=== PATIENT | female | born 1965 | race Caucasian/White ===

== ENCOUNTER 2020-07-15 10:30 | Outpatient (RCR) | payer MEDICARE, MEDICAID, SELFPAY ==
--- NOTE | 2020-07-09 13:42 | PM.EVENT ---
Event Note Date of Service: 07/09/20 Event Note: No show to med appointment.
[2020-07-09 14:16] VITALS: BMI 24.2
--- NOTE | 2020-07-09 15:13 | PC.NURSE ---
clients case opened in treatment team. The client called and ledt a message that she could not finf the find the email
--- NOTE | 2020-07-09 15:15 | PC.NURSE ---
The client left a message that when it was time to talk with the prescriber she could not find the E mail and therefore did not see her. I forward the call to Racheal Pelletier and called the client. She explained she just didnt have the e mail. She states that she had a good first day and will be back tomorrow.
--- NOTE | 2020-07-10 10:01 | PC.ADMIT ---
Patient is a 54 year old female who was referred by [facility] inpatient unit where patient was hospitalized s/p overdose on Ibuprofen and ETOH. Patient BAL 194, toxicology screen positive for cocaine. Patient reported VH of demons in her bedroom. She was reportedly not taking her medications consistently secondary to substance us. 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 In addition patient has hx of multiple suicide attempts via overdose. Patient receives VNA services for medication management. She also has a [facility] cyanide case hardener. Patient presents with depressed anxious mood. Denied SI. Asked her how she felt about the SA at present and she stated that she is glad it didn't work, stated she has a dog and friends who love her and that she loves also. Stated she is in the program to help her, get back on her feet . Report history of substance use. Reports ETOH use drinking 2 drinks a day, stated last drink was on Monday. Denied symptoms of detox and denied hx of ETOH detox sxs. Also reports history of IV cocaine last use 4-5 months ago and recent use of crack cocaine last use Monday night. Reports using crack cocaine about 2 x a month. Strongly encourged patient to attend online substance use groups in addition to PHP groups for more support. Medication reconciled with patient and [facility] D/C medication list. Patient reports taking as prescribed and stated that the VNA is scheduled to visit today as patient is to receive her monthly dose of IM Aripiprazole Lauroxil ER.
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
--- NOTE | 2020-07-13 08:54 | PC.NURSE ---
Staff stated that patient called out today as she was not feeling well stating she had a stomach virus. I called patient and she c/o diarrhea and nausea. Encouraged patient to increase her fluid intake. Patient did start the new prescription medication Cogentin. Ruth Zaman NP is aware.
--- NOTE | 2020-07-13 12:40 | PC.NURSE ---
Spoke to patient's VNA Teresa from [facility]. Informed Teresa that the [facility] prescriber Farzana Guzman NP wants to d/c patients IM Abilify monthly injections and started cogentin BID d/t Akathisia symptoms. Patient stated she started the Cogentin last Monday. Teresa has been with the patient for the past 2 years. Reports hx of pacing for about one year and that patient's prescriber is aware. Stated Abilify was increased starting December of 2019. Will d/c Abilify.
--- NOTE | 2020-07-14 13:24 | HO.PHPPROGNO ---
Subjective Subjective Date of Service: 07/14/20 Reason For Visit: depression Interim History: Ms. Matthew reports starting cogentin 1mg po BID. She reports minimal improvement of pacing and sense of restlessness. She denies seeing demons. She denies VH/AH. She reports last cocaine use was about one week ago. She continues to report very little insight into her substance use. She reports cocaine makes me feel normal. She denies SI/HI. Medication Compliance: Yes Side effects from medications: Yes (akathisia- most likely abillify but pt also on seroquel,cocaine) Mental Status Exam Mental Status Exam Narrative: Appearance: casually groomed, tapping feet, somewhat restless. Behavior: cooperative Psychomotor: some restlessness noted Speech: clear, normal rate/rhythm/volume, spontaneous TP: linear TC: no signs of psychosis, feeling restless/anxious SI: none HI: none VH/AH: denies Insight/judgment: poor x 2. Memory/cog: alert, oriented x 3. Grossly intact to conversational testing. Diagnostics Vital Signs (24Hr): Body Mass Index 24.2 Assessment & Plan Assessment & Plan (1) Cocaine-induced psychotic disorder: Status: Acute Code(s): F14.959 - Cocaine use, unspecified with cocaine-induced psychotic disorder, unspecified Assessment and Plan: Pt currently experiencing akathisia secondary to ABILIFY, also on seroquel- PT just received BARNARD of abilify on 07/09/2020. 1. D/C abilify due to akathisia- however, just had BARNARD. Cnsider paliperidone once next dose is due. 2. Pt continues to experience s/s of Akathisia- continue cogentin; Start propanolol 10mg po BID, educated pt on risks of CVA with cocaine use. 3. coordinate with OP psychiatric prescriber to switch to another antipsychotic. (2) PTSD (post-traumatic stress disorder): Status: Acute Code(s): F43.10 - Post-traumatic stress disorder, unspecified Assessment and Plan: 1. continue prozac 80mg po daily 2. continue seroquel 3. continue prazosin for nightmares. Certification I certify that partial hospital treatment is medically necessary due to the symptoms and problems resulting from the patient's mental illness and the failure to treat the patient at the partial hospital level of care would likely result in the patient requiring inpatient psychiatric care which could not be prevented at a less intensive level of care. Greater than 50% of the session was spent on counseling and/or coordination of care Discharge Plan Discharge Attending provider: James Zavala Medications: New benztropine 1 mg tablet 1 mg PO BID 15 Days Qty: 30 RF: 0 propranolol 10 mg tablet 10 mg PO BID Qty: 20 RF: 0 No Action fluoxetine 40 mg Capsule 80 mg PO DAILY RF: 0 hydroxyzine HCl 50 mg Tablet 50 mg PO BID PRN (Reason: Anxiety) RF: 0 omeprazole 40 mg Capsule,Delayed Release(Dr/Ec) 40 mg PO DAILY RF: 0 quetiapine 100 mg Tablet 100 mg PO BID PRN (Reason: Insomnia) RF: 0 calcium carbonate 500 mg calcium (1,250 mg) Tablet,Chewable 500 mg PO Q4H PRN (Reason: Heartburn) RF: 0 albuterol sulfate 90 mcg/actuation Hfa Aerosol Inhaler 2 puff INHALATION Q4H PRN (Reason: Shortness Of Breath) RF: 0 prazosin 2 mg Capsule 6 mg PO BEDTIME RF: 0 quetiapine 50 mg Tablet 150 mg PO BEDTIME RF: 0 Anoro Ellipta 62.5-25 mcg/actuation Blister With Device 1 inh INHALATION DAILY RF: 0 aripiprazole lauroxil 441 mg/1.6 mL Suspension,Extended Rel Syring 661 mg IM QMONTH RF: 0 Telehealth Telehealth Location of provider rendering services: practice address Location of patient: address on file Patient Identification confirmed using: Name, : Yes Telehealth method: video Patient verbally consented to treatment: Yes Patient verbally consented to billing insurance company: Yes Patient informed of any privacy concerns related to visit: Yes Time spent with patient (mins): 30
--- NOTE | 2020-07-14 14:45 | PC.NURSE ---
I met with client to review her treatment plan and to discuss discharge plans. She reports she has providers. We discussed 12 step groups online and she said she would try one. We agreed that her discharge day will be 07/29 or
--- NOTE | 2020-07-15 14:05 | PC.NURSE ---
The client called and left a message that she would not be returning today because she is too anxious. I called after program to check in. I left a message to call me
--- NOTE | 2020-07-15 15:21 | PC.NURSE ---
I called [facility] to make an appointment for the client with Aundrea Lopez. Left message to call
== END 2020-07-15 23:55 | disposition left against medical advice (07) ==
LOC: HO.PHPA 10:30
PROVIDERS: Visit Provider Psychiatry & Neurology Psychiatry
DX: F33.1 Major depressive disorder, recurrent, moderate (principal); F43.10 Post-traumatic stress disorder, unspecified; F14.959 Cocaine use, unspecified with cocaine-induced psychotic disorder, unspecified; Z79.899 Other long term (current) drug therapy
CPT/HCPCS: 90791; 90853

== ENCOUNTER 2021-05-13 13:19 | Outpatient (RCR) | payer MEDICARE, MEDICAID, SELFPAY | END 2021-05-14 07:29 | disposition home or self-care (01) | LOC: HO.PHPA 13:19 | PROVIDERS: PCP Physician Assistant; Visit Provider Psychiatry & Neurology Psychiatry | DX: F25.9 Schizoaffective disorder, unspecified (principal); F43.10 Post-traumatic stress disorder, unspecified; F14.90 Cocaine use, unspecified, uncomplicated ==

== ENCOUNTER 2021-07-23 20:11 | Inpatient (IN) | payer MEDICARE, MEDICAID, SELFPAY ==
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
[2021-07-24 08:28] VITALS: BP 136/92; PULSE 101; RESP 17; TEMP 36.6; O2SAT 97
[2021-07-24] MEDS: Thiamine HCL 100 MG TABLET 50 MG PO (08:52)
[2021-07-24] MEDS: Escitalopram Oxalate 5 MG TABLET 15 MG PO (08:53)
[2021-07-24] MEDS: Benztropine Mesylate 1 MG TABLET PO ×2 (08:54→20:02)
[2021-07-24] MEDS: Propranolol HCL 10 MG TABLET PO (08:55)
[2021-07-24] MEDS: Omeprazole 40 MG CAPSULE.DR PO (08:55)
[2021-07-24] MEDS: Folic Acid 1 MG TABLET PO (08:55)
[2021-07-24 09:46] LABS: Estimated Average Glucose 114 mg/dL; Hemoglobin A1c % 5.6 %
[2021-07-24 09:52] LABS: Cholesterol 302 mg/dL; HDL Cholesterol 63 mg/dL; LDL Cholesterol Calculated 195 mg/dl; Magnesium 2.1 mg/dL (1.6-2.6); Triglycerides 222 mg/dL
[2021-07-24] MEDS: LORazepam 0.5 MG TABLET PO ×2 (09:55→16:06)
[2021-07-24 10:16] LABS: Free T4 (Free Thyroxine) 0.98 ng/dL (0.71-1.85); Thyroid Stimulating Hormone 1.42 uIU/mL (0.32-4.0)
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
[2021-07-24] MEDS: Nicotine 21 MG PATCH.TD24 TRANSDERMA (14:07)
[2021-07-24] MEDS: Nicotine Polacrilex 2 MG GUM 4 MG BUCCAL ×2 (14:56→17:36)
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
[2021-07-24 19:58] VITALS: BP 127/84; PULSE 81; RESP 16; TEMP 36.7; O2SAT 97
[2021-07-24] MEDS: Prazosin HCL 5 MG, Prazosin HCL 1 MG 6 MG PO (20:00)
[2021-07-24] MEDS: traZODone HCL 100 MG TABLET PO (20:01)
[2021-07-24] MEDS: Melatonin 3 MG TABLET 6 MG PO (20:01)
[2021-07-24] MEDS: Propranolol HCL 20 MG TABLET PO (20:02)
[2021-07-25] MEDS: LORazepam 0.5 MG TABLET PO ×3 (02:54→17:19)
[2021-07-25 09:38] VITALS: BP 134/79; PULSE 81; RESP 18; TEMP 35.8; O2SAT 96
[2021-07-25] MEDS: Nicotine 21 MG PATCH.TD24 TRANSDERMA (09:42)
[2021-07-25] MEDS: Escitalopram Oxalate 5 MG TABLET 15 MG PO (09:44)
[2021-07-25] MEDS: Folic Acid 1 MG TABLET PO (09:45)
[2021-07-25] MEDS: Propranolol HCL 10 MG TABLET PO (09:45)
[2021-07-25] MEDS: Benztropine Mesylate 1 MG TABLET PO ×2 (09:45→20:09)
[2021-07-25] MEDS: Thiamine HCL 100 MG TABLET 50 MG PO (09:47)
[2021-07-25] MEDS: Omeprazole 40 MG CAPSULE.DR PO (09:47)
[2021-07-25] MEDS: Nicotine Polacrilex 2 MG GUM 4 MG BUCCAL ×2 (09:52→17:19)
[2021-07-25] MEDS: Calcium Carbonate 750 MG TAB.CHEW PO (10:56)
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
[2021-07-25 18:00] VITALS: BP 108/67; PULSE 87; RESP 18; TEMP 36.2; O2SAT 97
[2021-07-25] MEDS: Prazosin HCL 1 MG CAPSULE 8 MG PO (20:08)
[2021-07-25] MEDS: Propranolol HCL 20 MG TABLET PO (20:09)
[2021-07-25] MEDS: Melatonin 3 MG TABLET 6 MG PO (20:09)
[2021-07-25] MEDS: traZODone HCL 100 MG TABLET PO (20:09)
[2021-07-26 08:25] VITALS: BP 139/70; PULSE 95; RESP 17; TEMP 36.6; O2SAT 95
[2021-07-26] MEDS: Albuterol Sulfate 90 MCG 8 GM INHALER 2 PUFF INHALE (08:39)
[2021-07-26] MEDS: Nicotine 21 MG PATCH.TD24 TRANSDERMA (08:41)
[2021-07-26] MEDS: Thiamine HCL 100 MG TABLET 50 MG PO (08:42)
[2021-07-26] MEDS: Omeprazole 40 MG CAPSULE.DR PO (08:42)
[2021-07-26] MEDS: Propranolol HCL 10 MG TABLET PO (08:43)
[2021-07-26] MEDS: Escitalopram Oxalate 5 MG TABLET 15 MG PO (08:43)
[2021-07-26] MEDS: Benztropine Mesylate 1 MG TABLET PO ×2 (08:43→21:09)
[2021-07-26] MEDS: Folic Acid 1 MG TABLET PO (08:43)
[2021-07-26] MEDS: LORazepam 0.5 MG TABLET PO ×3 (08:44→21:09)
[2021-07-26] MEDS: Nicotine Polacrilex 2 MG GUM 4 MG BUCCAL ×3 (08:48→18:12)
[2021-07-26 09:24] LABS: Folate 14.8 ng/mL (> or = 4.0); Vitamin B12 372 pg/mL (200-900)
[2021-07-26] MEDS: Calcium Carbonate 750 MG TAB.CHEW PO (10:39)
[2021-07-26] MEDS: hydrOXYzine HCL 25 MG TABLET PO (16:19)
[2021-07-26 18:00] VITALS: BP 107/71; PULSE 80; RESP 18; TEMP 36.7; O2SAT 95
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
[2021-07-26] MEDS: traZODone HCL 100 MG TABLET PO (21:09)
[2021-07-26] MEDS: Melatonin 3 MG TABLET 6 MG PO (21:09)
[2021-07-26] MEDS: Prazosin HCL 5 MG CAPSULE 10 MG PO (21:09)
[2021-07-26] MEDS: Propranolol HCL 20 MG TABLET PO (21:10)
[2021-07-27] MEDS: Omeprazole 40 MG CAPSULE.DR PO (06:48)
[2021-07-27] MEDS: LORazepam 0.5 MG TABLET PO ×2 (06:49→16:34)
[2021-07-27] MEDS: Calcium Carbonate 750 MG TAB.CHEW PO ×3 (06:55→17:53)
[2021-07-27] MEDS: Albuterol Sulfate 90 MCG 8 GM INHALER 2 PUFF INHALE (07:55)
[2021-07-27 08:00] VITALS: BP 130/69; PULSE 82; RESP 16; TEMP 36.6; O2SAT 95
[2021-07-27] MEDS: Nicotine Polacrilex 2 MG GUM 4 MG BUCCAL (08:01)
[2021-07-27] MEDS: Nicotine 21 MG PATCH.TD24 TRANSDERMA (08:37)
[2021-07-27] MEDS: Escitalopram Oxalate 5 MG TABLET 15 MG PO (08:38)
[2021-07-27] MEDS: Benztropine Mesylate 1 MG TABLET PO ×2 (08:39→20:57)
[2021-07-27] MEDS: Folic Acid 1 MG TABLET PO (08:39)
[2021-07-27] MEDS: Thiamine HCL 100 MG TABLET 50 MG PO (08:39)
[2021-07-27] MEDS: Propranolol HCL 10 MG TABLET PO (08:40)
[2021-07-27] MEDS: Ondansetron ODT 4 MG TAB.RAPDIS TRANSLINGU (09:14)
[2021-07-27] MEDS: Magnesium Hydrox/Alum Hydrox 30 ML ORAL.SUSP PO ×3 (09:30→20:27)
--- NOTE | 2021-07-27 13:33 | ECG_ITS ---
Test Reason : lt sided chest discomfort Blood Pressure : / mmHG Vent. Rate : 066 BPM Atrial Rate : 066 BPM P-R Int : 166 ms QRS Dur : 078 ms QT Int : 406 ms P-R-T Axes : 044 030 065 degrees QTc Int : 425 ms Sinus rhythm with marked sinus arrhythmia Normal EKG No previous ECGs available Referred By: Josias Naqvi Electronically Signed By:MAMIE CODY
[2021-07-27] MEDS: Lidocaine HCl Viscous 2 % 15 ML SOLUTION 10 ML PO ×2 (15:03→20:28)
[2021-07-27] MEDS: PHENobarb/Hyoscy/Atropine/Scop 10 ML ELIXIR PO ×2 (15:03→20:28)
[2021-07-27 15:24] LABS: Hematocrit 36.9 % (37.0-47.0); Hemoglobin 12.5 g/dl (12.0-16.0); Mean Corpuscular HGB Conc 33.9 g/dl (31.0-35.0); Mean Corpuscular Hemoglobin 30.1 pg (27.0-33.0); Mean Corpuscular Volume 88.9 fL (80.0-98.0); Mean Platelet Volume 9.7 fL (9.4-12.3); Platelet Count 318 X10*3/uL (160-400); Red Blood Count 4.15 X10*6/uL (4.20-5.50); Red Cell Distribution Width 13.5 % (11.0-16.0); White Blood Count 14.1 X10*3/uL (4.8-10.8)
[2021-07-27] MEDS: hydrOXYzine HCL 50 MG/ML VIAL 25 MG IM (15:35)
[2021-07-27 15:40] LABS: Lactic Acid 1.1 mmol/L (0.5-2.0)
[2021-07-27 15:45] LABS: Anion Gap 15 (12-20); Blood Urea Nitrogen 13 mg/dL (9-16); Carbon Dioxide 22 mmol/L (22-29); Chloride 103 mmol/L (96-108); Estimated Glomerular Filt Rate > 60; Glucose Random 164 mg/dL (60-115); Lipase 14 U/L (8-78); Potassium 4.1 mmol/L (3.3-5.1); Sodium 136 mmol/L (135-145)
[2021-07-27 15:52] LABS: Calcium 11.2 mg/dL (8.4-10.2)
--- NOTE | 2021-07-27 16:31 | P.CNHOSGPS_ITS ---
History of Present Illness Data of Consult Service Date: 07/27/21 Primary Care Provider: Renu Bragg PA-C HPI Called to see patient for chest pain reflux nausea and vomiting. Patient has received several doses of Zofran and omeprazole without any relief. When questioned she states that she has had reflux in the past but nothing to this extent. She complains of constipation however states moved her bowels yesterday. She states she is vomiting bile however when observed not seen Review of Systems Review of Systems: Complains of retrosternal chest pain and burning Denies shortness of breath Complains of severe nausea with dry heaves in the absence of diarrhea Complains of mild diffuse abdominal pain secondary to vomiting PMFSH Medical History Bursitis COPD (chronic obstructive pulmonary disease) GERD (gastroesophageal reflux disease) Surgical History History of lumpectomy Social History Household Members: Family and None Housing: Other Housing Other:: public housing Do you presently have visiting nurse or other home services: No Unable to assess alcohol history related to: Unknown Patient Tobacco Use Status: Never used Tobacco Cigarettes Per Day: 10 Years Smoked: Since age 12 Use of substances other than those prescribed or required for medical reasons: Yes Substance Use Type: Crack/Cocaine and Marijuana Last Used Substance: Just Prior to Admission Currently Displaying Signs/Symptoms of Drug Intoxication Withdrawal: No Any prior treatment program specific to substance use: No Spiritual Healthcare Practices: none identified Confucianist Healthcare Practices: none identified Cultural Healthcare Practices: none identified Advance Directives: No Advance Directives Information Provided: No Do you have thoughts of harming others: None Do you have a plan to hurt others: No Plan Recently lost weight without trying: Unsure Eating poorly because of decreased appetite: Yes Nutrition Risks: No Nutritional Risk Patient : No : No Poor oral hygiene: No service: No Sexual orientation: Don't Know Meds Allergies Allergy/AdvReac Type Severity Reaction Status Date / Time No Known Allergies Allergy Mild NOT Verified 07/09/20 13:28 APPLICABLE Active Medications: Current Medications Acetaminophen (Acetaminophen 325 Mg Tablet) 650 mg PO Q6H PRN PRN Reason: Headache/Pain Mild Scale (1-3) Al Hydroxide/Mg Hydroxide (Magnesium Hydrox/Alum Hydrox 30 Ml Oral.Susp) 30 ml PO Q6H PRN PRN Reason: Heartburn/Nausea Last Admin: 07/27/21 09:30 Dose: 30 ml Documented by: Al Hydroxide/Mg Hydroxide (Magnesium Hydrox/Alum Hydrox 30 Ml Oral.Susp) 30 ml PO Q4H [facility] Stop: 07/27/21 19:01 Last Admin: 07/27/21 15:03 Dose: 30 ml Documented by: Albuterol Sulfate (Albuterol Sulfate 90 Mcg 8 Gm Inhaler) 2 puff INHALE RQ4H PRN PRN Reason: shortof breath or wheezing Last Admin: 07/27/21 07:55 Dose: 2 puff Documented by: Belladonna Alkaloids/Phenobarbital (Phenobarb/Hyoscy/Atropine/Scop 10 Ml Elixir) 10 ml PO Q4H [facility] Stop: 07/27/21 19:01 Last Admin: 07/27/21 15:03 Dose: 10 ml Documented by: Benztropine Mesylate (Benztropine Mesylate 1 Mg Tablet) 1 mg PO BID [facility] Last Admin: 07/27/21 08:39 Dose: 1 mg Documented by: Calcium Carbonate (Calcium Carbonate 750 Mg Tab.Chew) 750 mg PO Q6H PRN PRN Reason: Dyspepsia Last Admin: 07/27/21 11:10 Dose: 750 mg Documented by: Escitalopram Oxalate (Escitalopram Oxalate 5 Mg Tablet) 15 mg PO DAILY [facility] Last Admin: 07/27/21 08:38 Dose: 15 mg Documented by: Famotidine (Famotidine 20 Mg Tablet) 40 mg PO BEDTIME [facility] Folic Acid (Folic Acid 1 Mg Tablet) 1 mg PO DAILY [facility] Last Admin: 07/27/21 08:39 Dose: 1 mg Documented by: Hydroxyzine HCl (Hydroxyzine Hcl 25 Mg Tablet) 25 mg PO Q6H PRN PRN Reason: Anxiety Last Admin: 07/26/21 16:19 Dose: 25 mg Documented by: Hydroxyzine HCl (Hydroxyzine Hcl 50 Mg/Ml Vial) 25 mg IM Q4H PRN PRN Reason: Nausea and Vomiting Last Admin: 07/27/21 15:35 Dose: 25 mg Documented by: Lidocaine HCl (Lidocaine Hcl Viscous 2 % 15 Ml Solution) 10 ml PO Q4H [facility] Stop: 07/27/21 19:01 Last Admin: 07/27/21 15:03 Dose: 10 ml Documented by: Lorazepam (Lorazepam 0.5 Mg Tablet) 0.5 mg PO Q6H PRN PRN Reason: anxiety Last Admin: 07/27/21 06:49 Dose: 0.5 mg Documented by: Magnesium Hydroxide (Milk Of Magnesia 30 Ml Oral.Susp) 30 ml PO DAILY PRN PRN Reason: Constipation Melatonin (Melatonin 3 Mg Tablet) 6 mg PO BEDTIME [facility] Last Admin: 07/26/21 21:09 Dose: 6 mg Documented by: Nicotine (Nicotine 21 Mg Patch.Td24) 21 mg TRANSDERMA DAILY [facility] Last Admin: 07/27/21 08:37 Dose: 21 mg Documented by: Nicotine Polacrilex (Nicotine Polacrilex 2 Mg Gum) 4 mg BUCCAL Q1H PRN PRN Reason: Nicotine Cravings Last Admin: 07/27/21 08:01 Dose: 4 mg Documented by: Omeprazole (Omeprazole 40 Mg Capsule.Dr) 40 mg PO DAILY@0630 [facility] Last Admin: 07/27/21 06:48 Dose: 40 mg Documented by: Ondansetron HCl (Ondansetron Odt 4 Mg Tab.Rapdis) 4 mg TRANSLINGU Q4H PRN PRN Reason: Nausea Last Admin: 07/27/21 09:14 Dose: 4 mg Documented by: Ondansetron HCl (Ondansetron Odt 8 Mg Tab.Rapdis) 8 mg TRANSLINGU Q8H PRN PRN Reason: Nausea Oxybutynin Chloride (Oxybutynin Chloride Er 5 Mg Tab.Er.24) 10 mg PO DAILY [facility] Last Admin: 07/27/21 08:38 Dose: 10 mg Documented by: Prazosin HCl (Prazosin Hcl 5 Mg Capsule) 10 mg PO BEDTIME [facility] Last Admin: 07/26/21 21:09 Dose: 10 mg Documented by: Propranolol HCl (Propranolol Hcl 20 Mg Tablet) 20 mg PO BEDTIME [facility]; Protocol Last Admin: 07/26/21 21:10 Dose: 20 mg Documented by: Propranolol HCl (Propranolol Hcl 10 Mg Tablet) 10 mg PO DAILY [facility]; Protocol Last Admin: 07/27/21 08:40 Dose: 10 mg Documented by: Thiamine HCl (Thiamine Hcl 100 Mg Tablet) 50 mg PO DAILY [facility] Last Admin: 07/27/21 08:39 Dose: 50 mg Documented by: Tiotropium [place] (Tiotropium [place] 18 Mcg Cap.W.Dev) 1 puff INHALE RDAILY [facility] Last Admin: 07/27/21 09:14 Dose: 1 puff Documented by: Trazodone HCl (Trazodone Hcl 100 Mg Tablet) 100 mg PO BEDTIME [facility] Last Admin: 07/26/21 21:09 Dose: 100 mg Documented by: Home Medications Medication Instructions Recorded Confirmed Last Taken Type albuterol sulfate 90 mcg/actuation 2 puff INHALATION Q4H PRN 07/09/20 07/09/20 Unknown History aerosol inhaler aripiprazole lauroxil 441 mg/1.6 661 mg IM QMONTH 07/09/20 07/09/20 07/09/20 History mL suspension, ext.rel. IM syringe Pt states due today calcium carbonate 500 mg calcium 500 mg PO Q4H PRN 07/09/20 07/09/20 Unknown History (1,250 mg) chewable tablet fluoxetine 40 mg capsule 80 mg PO DAILY 07/09/20 07/09/20 07/09/20 08:30 History hydroxyzine HCl 50 mg tablet 50 mg PO BID PRN 07/09/20 07/09/20 Unknown History omeprazole 40 mg capsule,delayed 40 mg PO DAILY 07/09/20 07/09/20 07/09/20 08:30 History release prazosin 2 mg capsule 6 mg PO BEDTIME 07/09/20 07/09/20 Unknown History quetiapine 100 mg tablet 100 mg PO BID PRN 07/09/20 07/09/20 07/09/20 08:30 History quetiapine 50 mg tablet 150 mg PO BEDTIME 07/09/20 07/09/20 07/08/20 20:00 History umeclidinium 62.5 mcg-vilanterol 1 inh INHALATION DAILY 07/09/20 07/09/20 Unknown History 25 mcg/actuation powdr for inhalation (Anoro Ellipta) Results Labs CBC and Chem 7: 07/27/21 15:01 07/27/21 15:01 Labs: Laboratory Results - last 24 hr 07/27/21 07/27/21 07/27/21 15:01 15:01 15:01 MCV 88.9 MCH 30.1 MCHC 33.9 RDW 13.5 Plt Count 318 MPV 9.7 Absolute Nucleated RBC 0.000 Nucleated RBC % (auto) 0.0 Anion Gap 15 Estim Creat Clear Calc TNP Estimated GFR > 60 Random Glucose 164 H Lactic Acid 1.1 Calcium 11.2 H Lipase 14 Assessment and Plan (1) Intractable vomiting: Status: Acute (2) GERD (gastroesophageal reflux disease): Status: Acute Plan 55-year-old female with known history of gastroesophageal reflux disease prese nting with mid epigastric burning that radiates upper chest along with nausea and vomiting bile. EKG done during pain is without acute abnormalities. Laboratories essentially unremarkable save a white count of 14k 1. Intractable vomiting likely secondary to gastritis -ordered Maalox/viscous lidocaine/donatol x2 doses -IM hydroxyzine q.4 hours -omeprazole 40 mg p.o. q.a.m.; Pepcid 40 mg q.h.s. -adjust as indicated Physical Exam Vital Signs: Last Vital Signs Temp 97.8 F 07/27/21 08:00 Pulse 82 07/27/21 08:00 Resp 16 07/27/21 08:00 BP 130/69 07/27/21 08:00 Pulse Ox 95 07/27/21 08:00 Const Other: Awake alert ill-appearing secondary to vomiting Resp Other: Clear to auscultation bilaterally no rales rhonchi or wheezes Cardio Other: No S4; positive S1-S2; no S3 murmurs rubs gallops GI Other: Soft mildly tender diffusely with hyperactive bowel sounds Neuro Other: Cranial nerves 2-12 grossly intact as tested. Motor is 5/5 all extremities. Sensation is intact. Cognition appropriate Cranial nerves: Yes CN's II-XII intact bilaterally Extrem Other: No edema bilaterally
[2021-07-27 16:52] LABS: Troponin-I High Sensitivity < 3.5 ng/L (<3.5-17.0)
[2021-07-27] MEDS: Melatonin 3 MG TABLET 6 MG PO (20:57)
[2021-07-27] MEDS: Prazosin HCL 5 MG CAPSULE 10 MG PO (20:57)
[2021-07-27] MEDS: Propranolol HCL 20 MG TABLET PO (20:58)
[2021-07-27] MEDS: traZODone HCL 100 MG TABLET PO (20:58)
[2021-07-27] MEDS: Famotidine 20 MG TABLET 40 MG PO (20:58)
[2021-07-27 21:01] VITALS: BP 167/78; PULSE 103; TEMP 36.2; O2SAT 100
[2021-07-27] MEDS: Ondansetron ODT 8 MG TAB.RAPDIS TRANSLINGU (21:07)
[2021-07-28] MEDS: Ondansetron ODT 4 MG TAB.RAPDIS TRANSLINGU (06:36)
[2021-07-28] MEDS: Omeprazole 40 MG CAPSULE.DR PO (06:36)
[2021-07-28 08:45] VITALS: BP 134/82; BP 148/82; PULSE 80; PULSE 90; RESP 16; TEMP 36.7; O2SAT 97
[2021-07-28] MEDS: Nicotine 21 MG PATCH.TD24 TRANSDERMA (09:00)
[2021-07-28] MEDS: Escitalopram Oxalate 5 MG TABLET 15 MG PO (10:31)
[2021-07-28] MEDS: Thiamine HCL 100 MG TABLET 50 MG PO (10:32)
[2021-07-28] MEDS: Propranolol HCL 10 MG TABLET PO (10:32)
[2021-07-28] MEDS: Folic Acid 1 MG TABLET PO (10:33)
[2021-07-28] MEDS: Benztropine Mesylate 1 MG TABLET PO ×2 (10:33→20:50)
[2021-07-28] MEDS: PHENobarb/Hyoscy/Atropine/Scop 10 ML ELIXIR 5 ML PO ×2 (12:07→20:08)
[2021-07-28 13:08] LABS: COVID-19 Test Negative (Negative); IDNOW Serial# 55D5AD1C
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
--- NOTE | 2021-07-28 13:48 | PC.NURSE ---
At 845 am pt reports she is extremely nauseous even after zofran prn this am @636. Dr Naqvi informed and Donnatol was ordered prn, Patient also reported not drinking due to nausea. Lips and tongue were dry. Patient was instructed to drink 30 cc of clear fluid q 15 minutes and report further nausea. She verbalized understanding. Vital signs were stable with no orthostasis. She denies dizziness on arising. She denies diarrhea, reports a normal bm yesterday.
[2021-07-28] MEDS: Ondansetron ODT 8 MG TAB.RAPDIS TRANSLINGU (15:34)
[2021-07-28] MEDS: LORazepam 0.5 MG TABLET PO (17:14)
[2021-07-28] MEDS: Calcium Carbonate 750 MG TAB.CHEW PO (18:34)
[2021-07-28] MEDS: Magnesium Hydrox/Alum Hydrox 30 ML ORAL.SUSP PO (20:08)
[2021-07-28 20:44] VITALS: BP 159/94; PULSE 96; TEMP 36.3; O2SAT 97
[2021-07-28] MEDS: Famotidine 20 MG TABLET 40 MG PO (20:50)
[2021-07-28] MEDS: Melatonin 3 MG TABLET 6 MG PO (20:50)
[2021-07-28] MEDS: traZODone HCL 100 MG TABLET PO (20:51)
[2021-07-28] MEDS: Prazosin HCL 5 MG CAPSULE 10 MG PO (20:51)
[2021-07-28] MEDS: Propranolol HCL 20 MG TABLET PO (20:51)
[2021-07-29] MEDS: Ondansetron ODT 8 MG TAB.RAPDIS TRANSLINGU (01:55)
[2021-07-29] MEDS: LORazepam 0.5 MG TABLET PO (01:55)
[2021-07-29 07:00] VITALS: BMI 24.5
[2021-07-29] MEDS: Omeprazole 40 MG CAPSULE.DR PO (07:01)
[2021-07-29 09:00] VITALS: BP 158/83; PULSE 78; RESP 18; TEMP 36.8; O2SAT 98
[2021-07-29] MEDS: Propranolol HCL 10 MG TABLET PO (10:10)
[2021-07-29] MEDS: Thiamine HCL 100 MG TABLET 50 MG PO ×2 (10:10→10:31)
[2021-07-29] MEDS: Folic Acid 1 MG TABLET PO (10:11)
[2021-07-29] MEDS: Escitalopram Oxalate 5 MG TABLET 15 MG PO (10:11)
[2021-07-29] MEDS: Benztropine Mesylate 1 MG TABLET PO (10:12)
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
== END 2021-07-29 12:34 | disposition home or self-care (01) | DRG 885 ==
PROVIDERS: Hospitalist; Nurse Practitioner Acute Care; Registered Nurse; Admitting Provider Psychiatry & Neurology Psychiatry; PCP Physician Assistant; Visit Provider Psychiatry & Neurology Psychiatry
DX: F33.1 Major depressive disorder, recurrent, moderate (principal); R45.851 Suicidal ideations; J44.9 Chronic obstructive pulmonary disease, unspecified; K21.9 Gastro-esophageal reflux disease without esophagitis; R11.2 Nausea with vomiting, unspecified; F17.210 Nicotine dependence, cigarettes, uncomplicated; Z71.6 Tobacco abuse counseling; F43.10 Post-traumatic stress disorder, unspecified; F14.10 Cocaine abuse, uncomplicated; F10.10 Alcohol abuse, uncomplicated; Z20.822 Contact with and (suspected) exposure to COVID-19; Z79.899 Other long term (current) drug therapy
CPT/HCPCS: 36415; 80048; 80061; 82607; 82746; 83036; 83605; 83690; 83735; 84439; 84443; 84484; 85027; 87635; 93005